=== PATIENT | male | born 1960 | race American Indian/Alaskan Native ===

== ENCOUNTER 2017-04-09 18:44 | Emergency (ER) | payer BC, OTHER ==
[~2017-04-09] VITALS: Ht 177.8 cm; Wt 98.4 kg
[~2017-04-09 18:44] MED LIST: ASPIRIN EC81 MG PO; LISINOPRIL20 MG PO; [UNRECOGNIZED DRUG - OTHER] PO
--- NOTE | 2017-04-10 16:54 | EKG ---
[facility] [address] [facility] [place] [address] Signed Normal sinus rhythm Cannot rule out Anteroseptal infarct No previous ECGs available Confirmed by ELIO HESS MD ([id number]) on 04/10/2017 4:54:51 PM Electronically Signed By: ELIO HESS MD 04/10/17 1654 PATIENT NAME: DIANA BURNS Electrocardiogram DATE OF : 56 PHYSICIAN: ELIO HESS MD REPORT #: [id number] REPORT IS CONFIDENTIAL AND NOT TO BE RELEASED WITHOUT AUTHORIZATION
== END 2017-04-09 21:12 | disposition home or self-care (01) ==
LOC: ED 18:44
DX: R20.2 Paresthesia of skin (principal); E11.9 Type 2 diabetes mellitus without complications; I10 Essential (primary) hypertension; Z88.0 Allergy status to penicillin; Z79.82 Long term (current) use of aspirin; Z79.899 Other long term (current) drug therapy
CPT/HCPCS: 70450; 71010; 80053; 85025; 93005; 93010; 99284

== ENCOUNTER 2017-07-12 15:26 | Emergency (ER) | payer OTHER, BC ==
[~2017-07-12] VITALS: Ht 177.8 cm; Wt 97.5 kg
[2017-07-12] MEDS ORDERED: IBUPROFEN600 MG PO (16:51)
== END 2017-07-12 17:02 | disposition home or self-care (01) ==
LOC: ED 15:26
DX: S86.912A Strain of unspecified muscle(s) and tendon(s) at lower leg level, left leg, initial encounter (principal); I10 Essential (primary) hypertension; E11.9 Type 2 diabetes mellitus without complications; Z88.0 Allergy status to penicillin; Z79.899 Other long term (current) drug therapy; Z79.84 Long term (current) use of oral hypoglycemic drugs; Z79.82 Long term (current) use of aspirin; W22.8XXA Striking against or struck by other objects, initial encounter; Y99.0 Civilian activity done for income or pay
CPT/HCPCS: 73560; 99283

== ENCOUNTER 2018-07-13 14:27 | Emergency (ER) | payer BC, OTHER ==
[~2018-07-13] VITALS: Ht 177.8 cm; Wt 97.5 kg
--- OUTSIDE RECORDS SUMMARY | ~2018-07-13 | XMS | Clinical Summary ---
Demographics + + + | Address | [address] | | | [place] [address] | + + + | Home Phone | | + + + | Preferred Language | Unknown | + + + | Marital Status | | + + + | Presybeterian Affiliation | Unknown | + + + | Race | Unknown | + + + | Ethnic Group | Unknown | + + + Author + + + | Author | [facility] | | | and [place] | + + + | Organization | [facility] | | | and [place] | + + + | Address | Unknown | + + + | Phone | Unavailable | + + + Support + + +---------+ + | Name | Relationship | Address | Phone | + + +---------+ + | ELOINA BURNS | ECON | Unknown | | + + +---------+ + Care Team Providers + +------+ + | Care Market Research Consultant Name | Role | Phone | + +------+ + PP | Unavailable | + +------+ + Allergies Not on File Current Medications Not on file Active Problems Not on file Social History + +-------+ +--------+------+ | Tobacco Use | Types | Packs/Day | Years | Date | | | | | Used | | + +-------+ +--------+------+ | Never Assessed | | | | | + +-------+ +--------+------+ + + + | Sex Assigned at | Date Recorded | | | | + + + | Not on file | | + + + Plan of Treatment + + + + + | Health Maintenance | Due Date | Last Done | Comments | + + + + + | Vaccine: | | | | | Dtap/Tdap/Td (1 - | 8 | | | | Tdap) | | | | + + + + + | Vaccine: Zoster (1 | | | | | of 2) | 9 | | | + + + + + | Vaccine: Influenza | | | | | (#1) | 8 | | | + + + + + Results Not on filefrom Last 3 Months"
--- OUTSIDE RECORDS SUMMARY | ~2018-07-13 | XMS | Clinical Summary ---
Demographics + + + | Address | [address] | | | [place] [address] | + + + | Home Phone | | + + + | Preferred Language | Unknown | + + + | Marital Status | | + + + | Yazidism Affiliation | Unknown | + + + | Race | Unknown | + + + | Ethnic Group | Unknown | + + + Author + + + | Author | [facility] | | | and [place] | + + + | Organization | [facility] | | | and [place] | [...] Team Providers + +------+ + | Care Compensation Coordinator Name | Role | Phone | + [...]
[~2018-07-13 14:27] MED LIST changes: +IBUPROFEN600 MG PO; +MACROBID 100 M100 MG PO
--- OUTSIDE RECORDS SUMMARY | 2018-07-13 14:30 | XMS ---
PreManage Notification: DIANA BURNS Security Form Setter Metal Road Forms Events No recent Security Events currently on file CRITERIA MET - Group Notification CARE PROVIDERS ESTELA LOEN [facility] 11/21/2017-Current PHONE: Unknown Sam has no Care Guidelines for this patient. [place] VISIT COUNT (12 MO.) 2 [facility] [place] TOTAL 2 NOTE: Visits indicate total known visits. ED/UCC VISIT TRACKING (12 MO.) 07/13/2018 14:28 [facility] [place] TYPE: Emergency COMPLAINT: - R SHOULDER PAIN/NO INJURY 11/21/2017 12:14 [facility] [place] TYPE: Emergency COMPLAINT: - DIZZINESS DIAGNOSES: - Dizziness and giddiness - Type 2 diabetes mellitus with hyperglycemia - Other [place] [facility] (current[facility] drug therapy - Essential (primary) hypertension - Heat exhaustion, unspecified, initial encounter - Personal history of nicotine dependence - extermination supervisor (current) use of aspirin - Allergy status to penicillin INPATIENT VISIT TRACKING (12 MO.) No inpatient visits to display in this time frame [email or web address]
[2018-07-13] MEDS ORDERED: GLIMEPIRIDE4 MG PO (14:40)
== END 2018-07-13 17:13 | disposition home or self-care (01) ==
LOC: ED 14:27
DX: M25.511 Pain in right shoulder (principal); R07.81 Pleurodynia; E11.9 Type 2 diabetes mellitus without complications; I10 Essential (primary) hypertension; Z87.891 Personal history of nicotine dependence; Z88.0 Allergy status to penicillin; Z79.84 Long term (current) use of oral hypoglycemic drugs; Z79.82 Long term (current) use of aspirin; Z79.899 Other long term (current) drug therapy
CPT/HCPCS: 71101; 73030; 99283-25

== ENCOUNTER 2018-12-19 20:12 | Emergency (ER) | payer BC, OTHER ==
[~2018-12-19] VITALS: Ht 177.8 cm; Wt 97.5 kg
[~2018-12-19 20:12] MED LIST changes: +GLIMEPIRIDE4 MG PO
--- OUTSIDE RECORDS SUMMARY | 2018-12-19 20:14 | XMS ---
PreManage Notification: DIANA BRUNS Security Rim Turning Finisher Events No recent Security Events currently on file CRITERIA MET - Group Notification - [facility] - Has Care Guidelines CARE PROVIDERS DORIS FLORES Physician Shipyard Laborer: Surgical 07/16/2018-Current PHONE: Unknown ESTELA LEON [facility] 11/21/2017-Current PHONE: Unknown Sam has no Care Guidelines for this patient. Care History Medical/Surgical 07/16/2018 [facility] \T\middot;\T\nbsp; PATIENT IS A [employer] MEMBER. \T\middot;\T\nbsp; PLEASE REFER PATIENT TO [facility] FOR NON EMERGENT MEDICAL NEEDS. \T\middot;\ T\nbsp; [facility] CAN SEE PATIENTS SAME DAY FOR APTS IF PATIENT CALLS FIRST THING IN THE MORNING. E.D. VISIT COUNT (12 MO.) 2 [facility] [place] TOTAL 2 NOTE: Visits indicate total known visits. ED/UCC VISIT TRACKING (12 MO.) 12/19/2018 20:13 [facility] [place] TYPE: Emergency COMPLAINT: - RIGHT HAND SWELLING, NO INJURY 07/13/2018 14:28 [facility] [place] TYPE: Emergency COMPLAINT: - R SHOULDER PAIN/NO INJURY DIAGNOSES: - Other nursing home (current) drug therapy - Allergy status to penicillin - exterminator helper (current) use of aspirin - Personal history of nicotine dependence - Pleurodynia - Pain in right shoulder - exterminator helper (current) use of oral hypoglycemic drugs - Type 2 diabetes mellitus without complications - Essential (primary) hypertension INPATIENT VISIT TRACKING (12 MO.) No inpatient visits to display in this time frame [id number]
[2018-12-19] MEDS ORDERED: CEPHALEXIN500 MG PO (21:25)
[2018-12-19] MEDS ORDERED: BACTRIM DS TAB1 EACH PO (21:25)
== END 2018-12-19 21:36 | disposition home or self-care (01) ==
LOC: ED 20:12
DX: L03.113 Cellulitis of right upper limb (principal); E11.9 Type 2 diabetes mellitus without complications; I10 Essential (primary) hypertension; Z88.0 Allergy status to penicillin; Z79.899 Other long term (current) drug therapy; Z79.82 Long term (current) use of aspirin
CPT/HCPCS: 99283

== ENCOUNTER → 2019-04-22 | Emergency (ER) | payer BC, OTHER ==
[~2019-04-22] VITALS: Ht 177.8 cm; Wt 95.3 kg
[~2019-04-22] MED LIST changes: +BACTRIM DS TAB1 EACH PO; +CALCIUM500 M1 PO; +CEPHALEXIN500 MG PO; +DOXYCYCLINE HY100 MG PO; +GLUCOPHAGE500 MG PO; +IODOSORB40 GM; +LISINOPRIL40 MG PO
--- OUTSIDE RECORDS SUMMARY | ~2019-04-22 | XMS | Clinical Summary ---
Demographics + + + | Address | [address] | | | [place] [address] | + + + | Home Phone | | + + + | Preferred Language | Unknown | + + + | Marital Status | | + + + | Bahai Affiliation | Unknown | + + + | Race | Unknown | + + + | Ethnic Group | Unknown | + + + Author + + + | Author | [facility] | | | and [place] | + + + | Organization | [facility] | | | and [place] | + + + | Address | Unknown | + + + | Phone | Unavailable | + + + Support + + +---------+ + | Name | Relationship | Address | Phone | + + +---------+ + | Ivis Lyles | ECON | Unknown | | + + +---------+ + Care Team Providers + +------+ + | Care Licensed Practical Nurse Clinic Nurse Name | Role | Phone | + +------+ + PCP | Unavailable | + +------+ + Allergies Not on File Medications Not on file Active Problems Not [...] on file | | + + + + + + + | Job Start Date | Occupation | Industry | + + + + | Not on file | Not on file | Not on file | + + + + + + + + | Travel History | Travel Start | Travel End | + + + + + + | No recent travel history available. | + + Last Filed Vital Signs Not on file Plan of Treatment + + + + + | Health Maintenance | Due Date | Last Done | Comments | + + + + + | Vaccine: | | | | | Dtap/Tdap/Td (1 - | 0 | | | | Tdap) | | | | + + + + + | Vaccine: Zoster (1 | | | | | of 2) | 9 | | | + + + + + | Vaccine: Influenza | | | | | (#1) | 9 | | | + + + + + Results Not on filefrom Last 3 Months"
--- OUTSIDE RECORDS SUMMARY | ~2019-04-22 | XMS | Encounter Summary ---
Demographics + + + | Address | [address] | | | [place] [address] | + + + | Home Phone | | + + + | Preferred Language | Unknown | + + + | Marital Status | | + + + | Sikhism Affiliation | Unknown | + + + | Race | Unknown | + + + | Ethnic Group | Unknown | + + + Author + + + | Author | [facility] | | | and [place] | + + + | Organization | [facility] | | | and [place] [...] Team Providers + +------+ + | Care Chute Man Name | Role | Phone | + +------+ + PCP | Unavailable | + +------+ + Encounter Details +--------+ + + + + | Date | Type | Department | Care Team | Description | +--------+ + + + + | 04/08/ | Hospital | [facility] | | | | 2001 | Encounter | MED CTR XRAY [address] | | | | | [address] | | | | | | [place] [address] | | | | | | [phone] | | | +--------+ + + + + Social History + +-------+ +--------+------+ | Tobacco [...] recent travel history available. | + + documented as of this encounter Plan of Treatment Not on filedocumented as of this encounter Visit Diagnoses Not on filedocumented in this encounter"
--- OUTSIDE RECORDS SUMMARY | ~2019-04-22 | XMS | Clinical Summary ---
Demographics + + + | Address | [address] | | | [place] [address] | + + + | Home Phone | | + + + | Preferred Language | Unknown | + + + | Marital Status | | + + + | Jain Affiliation | Unknown | + + + | Race | Unknown | + + + | Ethnic Group | Unknown | + + + Author + + + | Author | [facility] | | | and [place] | + + + | Organization | [facility] | | | and [...] Team Providers + +------+ + | Care Operating Room Tech Name | Role | Phone | [...]
--- OUTSIDE RECORDS SUMMARY | ~2019-04-22 | XMS | Encounter Summary ---
Demographics + + + | Address | [address] | | | [place] [address] | + + + | Home Phone | | + + + | Preferred Language | Unknown | + + + | Marital Status | | + + + | Hoahaoism Affiliation | Unknown | + + + | Race | Unknown | + + + | Ethnic Group | Unknown | + + + Author + + + | Author | [facility] | | | and [place] | + + + | Organization | [facility] | | | and [...] Team Providers + +------+ + | Care Deburr Operator Name | Role | Phone | + +------+ + PCP | Unavailable | + +------+ + Encounter Details +--------+ + + + + | Date | Type | Department | Care Team | Description | +--------+ + + + + | 04/08/ | Hospital | [facility] | | | | 2001 | Encounter | MED CTR XRAY [address] | | | | | [address] | | | | | | [place] [address] | | | | | | [phone] | | | +--------+ + + + [...]
--- OUTSIDE RECORDS SUMMARY | 2019-04-22 09:44 | XMS ---
PreManage Notification: DIANA BURNS Security Animal Anatomy Teacher Events No recent Security Events currently on file CRITERIA MET - Group Notification - [facility] - 2 Visits in 30 Days CARE PROVIDERS DORIS MATAMOROS Physician Hvac Sheet Metal Installer Helper: Surgical 07/16/2018-Current PHONE: Unknown ESTELA LEON [facility] 11/21/2017-Current PHONE: Unknown SHADY DUBON Nurse Practitioner 12/20/2018-Current PHONE: [phone] [facility] 04/16/2019-Current PHONE: [phone] Sam has no Care Guidelines for this patient. 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 PLEASE REFER PATIENT TO [facility] FOR NON EMERGENT MEDICAL NEEDS. [facility] CAN SEE PATIENTS SAME DAY FOR APTS IF PATIENT CALLS FIRST THING IN THE MORNING. EJosé Antonio VISIT COUNT (12 MO.) 4 [facility]. TOTAL 4 NOTE: Visits indicate total known visits. ED/UCC VISIT TRACKING (12 MO.) 04/22/2019 09:43 [facility] [place] TYPE: Emergency COMPLAINT: - FOOT PAIN/ WOUND 04/15/2019 14:35 [facility] [place] TYPE: Emergency COMPLAINT: - LEFT FOOT PAIN DIAGNOSES: - Allergy status to penicillin - Personal history of nicotine dependence - Exposure to other specified factors, initial encounter - Cellulitis of left lower limb - 1 Type 2 diabetes mellitus with unspecified complications - Other longterm (current) drug therapy - Essential (primary) hypertension - Oth symptoms and signs involving the musculoskeletal system - Puncture wound without foreign body, left foot, init encntr 12/19/2018 20:13 [facility] [place] TYPE: Emergency COMPLAINT: - RIGHT HAND SWELLING, NO INJURY DIAGNOSES: - Other longterm (current) drug therapy - Essential (primary) hypertension - moth exterminator (current) use of aspirin - Other specified soft tissue disorders - 1 Type 2 diabetes mellitus without complications - Cellulitis of right upper limb - Allergy status to penicillin 07/13/2018 14:28 [facility] [place] TYPE: Emergency COMPLAINT: - R SHOULDER PAIN/NO INJURY DIAGNOSES: - Other longterm (current) drug therapy - Allergy status to penicillin - shelter (current) use of aspirin - Personal history of nicotine dependence - Pleurodynia - Pain in right shoulder - shelter (current) use of oral hypoglycemic drugs - 1 Type 2 diabetes mellitus without complications - Essential (primary) hypertension INPATIENT VISIT TRACKING (12 MO.) No inpatient visits to display in this time frame [id number]
== END ==
LOC: ED 09:42
DX: E11.621 Type 2 diabetes mellitus with foot ulcer (principal); L97.529 Non-pressure chronic ulcer of other part of left foot with unspecified severity; I10 Essential (primary) hypertension; Z88.0 Allergy status to penicillin; Z79.84 Long term (current) use of oral hypoglycemic drugs; Z79.899 Other long term (current) drug therapy
CPT/HCPCS: 99283; J2704

== ENCOUNTER 2021-07-01 15:12 | Emergency (ER) | payer OTHER, BC ==
[~2021-07-01] VITALS: Ht 177.8 cm; Wt 100.7 kg
[~2021-07-01 15:12] MED LIST changes: -IODOSORB40 GM; +IODOSORB40 GM TOP; +JANUVIA100 MG PO; +LEVOFLOXACIN500 MG PO; +METFORMIN HCL1000 MG PO; +METRONIDAZOLE500 MG PO
--- OUTSIDE RECORDS SUMMARY | 2021-07-01 15:27 | XMS ---
PreManage Notification: DIANA BURNS Security Fruit Coordinator Events No recent Security Events currently on file CRITERIA MET - Group Notification CARE PROVIDERS DORIS MATAMOROS Physician Dampener Operator: Surgical 07/16/2018-Current PHONE: Unknown ESTELA LEON [facility] 11/21/2017-Current PHONE: [phone] SHADY DUBON Nurse Practitioner 12/20/2018-Current PHONE: [phone] LANDY [facility] 04/16/2019-[facility] PHONE: [phone] Sam has no Care Guidelines for this patient. Care History Medical/Surgical 07/16/2018 [facility] \T\middot;\T\nbsp; [facility] \T\middot;\T\nbsp; PLEASE REFER PATIENT TO [facility] FOR NON EMERGENT MEDICAL NEEDS. \T\middot;\ T\nbsp; [facility] CAN SEE PATIENTS SAME DAY FOR APTS IF PATIENT CALLS FIRST THING IN THE MORNING. E.D. VISIT COUNT (12 MO.) 1 [facility]. TOTAL 1 NOTE: Visits indicate total known visits. ED/UCC VISIT TRACKING (12 MO.) 07/01/2021 15:13 [facility] [place] TYPE: Emergency COMPLAINT: - CHEMICAL EXPOSURE INPATIENT VISIT TRACKING (12 MO.) No inpatient visits to display in this time frame [email or web address]
[2021-07-01] MEDS ORDERED: VITAMIN B122500 MCG PO (16:33)
[2021-07-01] MEDS ORDERED: LISINOPRIL40 MG PO (16:33)
[2021-07-01] MEDS ORDERED: VITAMIN C500 M1 PO (16:34)
--- NOTE | 2021-07-02 07:01 | EKG ---
[facility] [address] [facility] [place], [place] [address] Signed Sinus rhythm with 1st degree AV block Otherwise normal ECG When compared with ECG of 23-APR-2019 10:08, No significant change was found Confirmed by SHERYL CRAIG MD ([id number]) on 07/02/2021 7:01:17 AM Electronically Signed By: SHERYL CRAIG MD 07/02/21 0701 PATIENT NAME: KATYDIANA Electrocardiogram DATE OF : 56 PHYSICIAN: SHERYL CRAIG MD REPORT #: [id number] REPORT IS CONFIDENTIAL AND NOT TO BE RELEASED WITHOUT AUTHORIZATION
== END 2021-07-01 19:25 | disposition home or self-care (01) ==
LOC: ED 15:12
DX: E11.65 Type 2 diabetes mellitus with hyperglycemia (principal); I10 Essential (primary) hypertension; Z88.0 Allergy status to penicillin; Z79.899 Other long term (current) drug therapy; Z77.098 Contact with and (suspected) exposure to other hazardous, chiefly nonmedicinal, chemicals
CPT/HCPCS: 36415; 80053; 84484; 85025; 93005; 93010; 99283-25; G0480

== ENCOUNTER 2022-05-30 18:03 | Emergency (ER) | payer BC, OTHER ==
[~2022-05-30] VITALS: Ht 177.8 cm; Wt 100.7 kg
[~2022-05-30 18:03] MED LIST changes: +VITAMIN B122500 MCG PO; +VITAMIN C500 M1 PO
--- OUTSIDE RECORDS SUMMARY | 2022-05-30 18:13 | XMS ---
PreManage Notification: DIANA BURNS Security Tip Length Checker Events No recent Security Events currently on file CRITERIA MET - Group Notification - [facility] CARE PROVIDERS DORIS MATAMOROS Physician Analytics Architect: Surgical 07/16/2018-Current PHONE: Unknown ESTELA LEON [facility] 11/21/2017-Current PHONE: [phone] SHADY DUBON Nurse Practitioner 12/20/2018-Current PHONE: [phone] LANDY [facility] 04/16/2019-[facility] PHONE: [phone] ROBERT AKHIOK Case Management 07/02/2021-[facility] PHONE: [phone] Sam has no Care Guidelines for this patient. Care History Medical/Surgical 07/01/2021 [facility] \T\middot;\T\nbsp; PATIENT- [facility] ELIGIBLE \T\middot;\T\nbsp; PLEASE REFER PATIENT TO [facility] FOR NON EMERGENT MEDICAL NEEDS. \T\middot;\ T\nbsp; [facility] CAN SEE PATIENTS SAME DAY FOR APTS IF PATIENT CALLS FIRST THING IN THE MORNING. E.D. VISIT COUNT (12 MO.) [address] [place] [address]. TOTAL 2 NOTE: Visits indicate total known visits. ED/UCC VISIT TRACKING (12 MO.) 05/30/2022 18:04 [facility] [place] TYPE: Emergency COMPLAINT: - L FOOT PAIN 07/01/2021 15:13 [facility] [place] TYPE: Emergency COMPLAINT: - CHEMICAL EXPOSURE DIAGNOSES: - Essential (primary) hypertension - Contact with and (suspected) exposure to other hazardous, chiefly nonmedicinal, chemicals - Dizziness and giddiness - Allergy status to penicillin - Other longterm (current) drug therapy - Type 2 diabetes mellitus with hyperglycemia INPATIENT VISIT TRACKING (12 MO.) No inpatient visits to display in this time frame [id number]
== END 2022-05-31 02:46 | disposition home or self-care (01) ==
LOC: ED 18:03
DX: M86.9 Osteomyelitis, unspecified (principal); I10 Essential (primary) hypertension; E11.9 Type 2 diabetes mellitus without complications; Z88.0 Allergy status to penicillin; Z79.899 Other long term (current) drug therapy
CPT/HCPCS: 36415; 73630; 80053; 85025; 96365; 96366; 99283-25; J3370; J7060

== ENCOUNTER 2022-09-07 18:39 | Observation (INO) | payer BC, OTHER ==
[~2022-09-07] VITALS: Ht 177.8 cm; Wt 96.3 kg
--- OUTSIDE RECORDS SUMMARY | 2022-09-07 18:46 | XMS ---
PreManage Notification: DIANA BURNS Security Lamp Mechanic Events No recent Security Events currently on file CRITERIA MET - Group Notification - [facility] CARE PROVIDERS DORIS MATAMOROS Physician Counselor Aide: Surgical 07/16/2018-Current PHONE: Unknown ESTELA LEON [facility] 11/21/2017-Current PHONE: [phone] SHADY DUBON Nurse Practitioner 12/20/2018-Current PHONE: [phone] LANDY [facility] 04/16/2019-[facility] PHONE: [phone] ROBERT SNOQUALMIE Case Management 07/02/2021-[facility] PHONE: [phone] Sam has no Care Guidelines for this patient. Care History Medical/Surgical 07/01/2021 [facility] \T\middot;\T\nbsp; PATIENT- [facility]IG[facility] \T\middot;\T\nbsp; PLEASE REFER PATIENT TO [facility] FOR NON EMERGENT MEDICAL NEEDS. \T\middot;\ T\nbsp; [facility] CAN SEE PATIENTS SAME DAY FOR APTS IF PATIENT CALLS FIRST THING IN THE MORNING. E.D. VISIT COUNT (12 MO.) [address] [place] [address]. TOTAL 2 NOTE: Visits indicate total known visits. ED/UCC VISIT TRACKING (12 MO.) 09/07/2022 18:40 [facility] [place] TYPE: Emergency COMPLAINT: - NUMBNESS 05/30/2022 18:04 [facility] [place] TYPE: Emergency COMPLAINT: - L FOOT PAIN/NO INJ DIAGNOSES: - Allergy status to penicillin - Essential (primary) hypertension - Osteomyelitis, unspecified - Other terminal makeup operator (current) drug therapy - Other specified soft tissue disorders - Type 2 diabetes mellitus without complications INPATIENT VISIT TRACKING (12 MO.) No inpatient visits to display in this time frame [id number]
[2022-09-07 22:05] VITALS: BP 198/93
[2022-09-07] MEDS ORDERED: CIPROFLOXACIN750 MG (22:12)
[2022-09-08 02:05] VITALS: BP 169/77
[2022-09-08 05:57] VITALS: BP 171/79
[2022-09-08 08:56] VITALS: BP 167/72
[2022-09-08] MEDS ORDERED: ASPIRIN81 MG PO (10:19)
[2022-09-08] MEDS ORDERED: GLYNASE1.5 MG PO (10:20)
[2022-09-08] MEDS ORDERED: ACCUPRIL5 MG PO (10:25)
[2022-09-08] MEDS ORDERED: VITAMIN B-121000 MCG PO (10:29)
[2022-09-08] MEDS ORDERED: VITAMIN C1000 MG PO (10:29)
[2022-09-08] MEDS ORDERED: GLYBURIDE5 MG PO (11:27)
[2022-09-08 13:21] VITALS: BP 172/80
--- NOTE | 2022-09-08 21:34 | EKG ---
[facility] [address] [facility] [place], [place] [address] Signed Sinus rhythm with 1st degree AV block Otherwise normal ECG When compared with ECG of 01-JUL-2021 16:48, No significant change was found Confirmed by SHERYL CRAIG MD ([id number]) on 09/08/2022 9:34:25 PM Electronically Signed By: SHERYL CRAIG MD 09/08/224 PATIENT NAME: DIANA BURNS Electrocardiogram DATE OF : 56 PHYSICIAN: SHERYL CRAIG MD REPORT #: [id number] REPORT IS CONFIDENTIAL AND NOT TO BE RELEASED WITHOUT AUTHORIZATION
== END 2022-09-08 13:38 | disposition home or self-care (01) ==
LOC: ED 18:39 → MS 18:41
PROVIDERS: ADMIT Internal Medicine; ATTEND Internal Medicine
DX: I63.9 Cerebral infarction, unspecified (principal); E11.65 Type 2 diabetes mellitus with hyperglycemia; I10 Essential (primary) hypertension; Z88.0 Allergy status to penicillin
CPT/HCPCS: 36415; 70450; 70496; 70498; 70551; 71045; 80048; 80053; 80061; 83036; 83735; 85025; 87502; 93005; 93010; 99285-25; A9270; G0378; J1815; J7030; Q9967; U0003

== ENCOUNTER 2022-11-03 21:35 | Inpatient (IN) | payer BC, OTHER ==
[~2022-11-03] VITALS: Ht 177.8 cm; Wt 95.4 kg
--- OUTSIDE RECORDS SUMMARY | ~2022-11-03 | XMS | Continuity of Care Document ---
Demographics + + + | Address | [address] | | | [place] [address] | + + + | Preferred Language | Unknown | + + + | Marital Status | | + + + | Anabaptism Affiliation | Unknown | + + + | Race | or | + + + | Ethnic Group | Not or | + + + Author + + + | Author | [facility] | + + + | Organization | [facility] | + + + | Address | [address] | | | [place] [address] | + + + | Phone | | + + + Care Team Providers + + + + | Care Polystyrene Molding Machine Tender Name | Role | Phone | + + + + Unavailable | Unavailable | + + + + Unavailable | Unavailable | + + + + Allergies and Intolerances + + + + + | date | description | facility | type | + + + + + | (no date) | Urticaria | [facility] | (unknown) | | | | Hospital | | + + + + + | (no date) | Penicillin | [facility] | (unknown) | | | | Hospital | | + + + + + | (no date) | Penicillin | [facility] | (unknown) | | | | Hospital | | + + + + + | (no date) | Penicillins | [facility] | (unknown) | + + + + + | (no date) | Penicillin | [facility] | (unknown) | | | | Hospital | | + + + + + | (no date) | Penicillin | [facility] | (unknown) | | | | Hospital | | + + + + + Encounters No information. Functional Status No information. Immunizations No information. Medications + + + + | date | description | facility | + + + + | 2022-05-31 00:00 | CYANOCOBALAMIN (VITAMIN | [facility] | | | B-12) | | + + + + | 2019-04-28 00:00 | DOXYCYCLINE HYCLATE | [facility] | + + + + | 2017-07-12 00:00 | IBUPROFEN | [facility] | + + + + | 2022-05-31 00:00 | LISINOPRIL | [facility] | + + + + | 2019-04-28 00:00 | GLIMEPIRIDE | [facility] | + + + + | 2022-05-31 00:00 | GLIMEPIRIDE | [facility] | + + + + | 2019-04-28 00:00 | LEVOFLOXACIN | [facility] | + + + + | 2022-05-31 00:00 | ASCORBIC ACID | [facility] | + + + + | 2022-05-31 00:00 | ASPIRIN | [facility] | + + + + | 2018-12-19 00:00 | CEPHALEXIN | [facility] | + + + + | 2019-04-30 00:00 | METRONIDAZOLE | [facility] | + + + + | 2022-05-31 00:00 | CALCIUM CARBONATE | [facility] | + + + + | 2017-11-21 00:00 | NITROFURANTOIN MONOHYD | [facility] | | | MACROCR | | + + + + | 2019-04-28 00:00 | SITAGLIPTIN PHOSPHATE | [facility] | + + + + | 2022-05-31 00:00 | CADEXOMER IODINE | [facility] | + + + + | 2018-12-19 00:00 | | [facility] | | | SULFAMETHOXAZOLE/TRIMETHOPR | | | | IM DS | | + + + + | 2019-04-28 00:00 | METFORMIN HCL | [facility] | + + + + | 2019-04-15 00:00 | metFORMIN HCL | [facility] | + + + + Problems + + + + | date | description | facility | + + + + | 2017-04-09 00:00 | Paresthesia of right lower | [facility] | | | extremity | | + + + + | 2017-07-12 00:00 | Strain of left knee and | [facility] | | | leg | | + + + + | 2017-11-21 00:00 | Hyperglycemia | [facility] | + + + + | 2017-11-21 00:00 | Heat exhaustion | [facility] | + + + + | 2018-07-13 00:00 | Shoulder pain | [facility] | + + + + | 2018-12-19 00:00 | Cellulitis of right hand | [facility] | + + + + | 2019-04-15 00:00 | Cellulitis of left foot | [facility] | + + + + | 2019-04-15 00:00 | Puncture wound of foot | [facility] | + + + + | 2019-04-22 00:00 | Diabetic foot ulcer | [facility] | + + + + | 2021-07-01 00:00 | Hypertension | [facility] | + + + + | 2021-07-01 00:00 | High glucose level | [facility] | + + + + | 2021-07-01 00:00 | Chemical exposure | [facility] | + + + + | 2022-05-30 00:00 | Osteomyelitis of left foot | [facility] | | | | | + [...] + + | 2022-05-30 18:04 | OTHER RESIDENTIAL (CURRENT) | [facility] | [...] + + + | 2022-10-25 11:39 | DYE COLORIST FORMULATOR (CURRENT) USE OF | [facility] | | | ASPIRIN | | + + + + | 2022-10-25 11:39 | DYE COLORIST FORMULATOR (CURRENT) USE OF | [facility] | | | ORAL HYPOGLYCEMIC DRUGS | | + + + + | 2022-10-25 11:39 | OTHER RESIDENTIAL (CURRENT) | [facility] | | | DRUG THERAPY | | + + + + | 2022-10-25 11:39 | ALLERGY STATUS TO | [facility] | | | PENICILLIN | | + + + + Procedures No information. Results/Labs No information. Social History No information. Vital Signs + [...]
--- OUTSIDE RECORDS SUMMARY | ~2022-11-03 | XMS | Continuity of Care Document ---
Demographics + + + | Address | [address] | | | [place] [address] | + + + | Preferred Language | Unknown | + + + | Marital Status | | + + + | Muslim Affiliation | Unknown | + + + | Race | or | + + + | Ethnic Group | Not or | + + + Author + + + | Author | [facility] | + + + | Organization | [facility] | + + + | Address | [address] | | | [place] [address] | + + + | Phone | | + + + Care Team Providers + + + + | Care Dog Track Kennel Manager Name | Role | Phone | + + + + Unavailable | Unavailable | + + + + Unavailable | Unavailable | + + + + Allergies and Intolerances + + + + + | date | description | facility | type | + + + + + | (no date) | Urticaria | [facility] | (unknown) | | | | Hospital | | + + + + + | (no date) | Penicillin | [facility] | (unknown) | | | | Hospital | | + + + + + | (no date) | Penicillin | [facility] | (unknown) | | | | Hospital | | + + + + + | (no date) | Penicillins | [facility] | (unknown) | + + + + + | (no date) | Penicillin | [facility] | (unknown) | | | | Hospital | | + + + + + | (no date) | Penicillin | [facility] | (unknown) | | | | Hospital | | + + + + + Encounters No information. Functional Status No information. Immunizations No information. Medications + + + + | date | description | facility | + + + + | 2022-05-31 00:00 | CYANOCOBALAMIN (VITAMIN | [facility] | | | B-12) | | + + + + | 2019-04-28 00:00 | DOXYCYCLINE HYCLATE | [facility] | + + + + | 2017-07-12 00:00 | IBUPROFEN | [facility] | + + + + | 2022-05-31 00:00 | LISINOPRIL | [facility] | + + + + | 2019-04-28 00:00 | GLIMEPIRIDE | [facility] | + + + + | 2022-05-31 00:00 | GLIMEPIRIDE | [facility] | + + + + | 2019-04-28 00:00 | LEVOFLOXACIN | [facility] | + + + + | 2022-05-31 00:00 | ASCORBIC ACID | [facility] | + + + + | 2022-05-31 00:00 | ASPIRIN | [facility] | + + + + | 2018-12-19 00:00 | CEPHALEXIN | [facility] | + + + + | 2019-04-30 00:00 | METRONIDAZOLE | [facility] | + + + + | 2022-05-31 00:00 | CALCIUM CARBONATE | [facility] | + + + + | 2017-11-21 00:00 | NITROFURANTOIN MONOHYD | [facility] | | | MACROCR | | + + + + | 2019-04-28 00:00 | SITAGLIPTIN PHOSPHATE | [facility] | + + + + | 2022-05-31 00:00 | CADEXOMER IODINE | [facility] | + + + + | 2018-12-19 00:00 | | [facility] | | | SULFAMETHOXAZOLE/TRIMETHOPR | | | | IM DS | | + + + + | 2019-04-28 00:00 | METFORMIN HCL | [facility] | + + + + | 2019-04-15 00:00 | metFORMIN HCL | [facility] | + + + + Problems + + + + | date | description | facility | + + + + | 2017-04-09 00:00 | Paresthesia of right lower | [facility] | | | extremity | | + + + + | 2017-07-12 00:00 | Strain of left knee and | [facility] | | | leg | | + + + + | 2017-11-21 00:00 | Hyperglycemia | [facility] | + + + + | 2017-11-21 00:00 | Heat exhaustion | [facility] | + + + + | 2018-07-13 00:00 | Shoulder pain | [facility] | + + + + | 2018-12-19 00:00 | Cellulitis of right hand | [facility] | + + + + | 2019-04-15 00:00 | Cellulitis of left foot | [facility] | + + + + | 2019-04-15 00:00 | Puncture wound of foot | [facility] | + + + + | 2019-04-22 00:00 | Diabetic foot ulcer | [facility] | + + + + | 2021-07-01 00:00 | Hypertension | [facility] | + + + + | 2021-07-01 00:00 | High glucose level | [facility] | + + + + | 2021-07-01 00:00 | Chemical exposure | [facility] | + + + + | 2022-05-30 00:00 | Osteomyelitis of left foot | [facility] | | | | | + [...] + + | 2022-05-30 18:04 | OTHER PENITENTIARY (CURRENT) | [facility] | | | DRUG [...] + + + | 2022-10-25 11:39 | SUPPORT TEAM MEMBER (CURRENT) USE OF | [facility] | | | ASPIRIN | | + + + + | 2022-10-25 11:39 | SUPPORT TEAM MEMBER (CURRENT) USE OF | [facility] | | | ORAL HYPOGLYCEMIC DRUGS | | + + + + | 2022-10-25 11:39 | OTHER PENITENTIARY (CURRENT) | [facility] | | | DRUG [...]
--- OUTSIDE RECORDS SUMMARY | ~2022-11-03 | XMS | Continuity of Care Document ---
Demographics + + + | Address | [address] | | | [place] [address] | + + + | Preferred Language | Unknown | + + + | Marital Status | | + + + | Jewish Affiliation | Unknown | + + + | Race | or | + + + | Ethnic Group | Not or | + + + Author + + + | Author | [facility] | + + + | Organization | [facility] | + + + | Address | [address] | | | [place] [address] | + + + | Phone | | + + + Care Team Providers + + + + | Care Budget Counselor Name | Role | Phone | + + + + Unavailable | Unavailable | + + + + Unavailable | Unavailable | + + + + Allergies and Intolerances + + + + + | date | description | facility | type | + + + + + | (no date) | Urticaria | [facility] | (unknown) | | | | Hospital | | + + + + + | (no date) | Penicillin | [facility] | (unknown) | | | | Hospital | | + + + + + | (no date) | Penicillin | [facility] | (unknown) | | | | Hospital | | + + + + + | (no date) | Penicillins | [facility] | (unknown) | + + + + + | (no date) | Penicillin | [facility] | (unknown) | | | | Hospital | | + + + + + | (no date) | Penicillin | [facility] | (unknown) | | | | Hospital [...] + + | 2022-05-30 18:04 | OTHER ASSISTED (CURRENT) | [facility] | | | DRUG [...] + + + | 2022-10-25 11:39 | CHILD WELFARE CASEWORKER (CURRENT) USE OF | [facility] | | | ASPIRIN | | + + + + | 2022-10-25 11:39 | CHILD WELFARE CASEWORKER (CURRENT) USE OF | [facility] | | | ORAL HYPOGLYCEMIC DRUGS | | + + + + | 2022-10-25 11:39 | OTHER ASSISTED (CURRENT) | [facility] | | | DRUG [...]
[~2022-11-03 21:35] MED LIST changes: +ACCUPRIL5 MG PO; +ASPIRIN81 MG PO; +CIPROFLOXACIN750 MG; +GLYBURIDE5 MG PO; +GLYNASE1.5 MG PO; +LIPITOR40 MG PO; +PLAVIX75 MG PO; +VITAMIN B-121000 MCG PO; +VITAMIN C1000 MG PO
--- OUTSIDE RECORDS SUMMARY | 2022-11-03 21:42 | XMS ---
PreManage Notification: DIANA BURNS Security Cte Teacher Events No recent Security Events currently on file CRITERIA MET - Group Notification - [facility] - 2 Visits in 30 Days - [facility] - Has Care Guidelines CARE PROVIDERS DORIS MATAMOROS Physician Butcher: Surgical 07/16/2018-Current PHONE: Unknown ESTELA LEON [facility] 11/21/2017-Current PHONE: [phone] SHADY DUBON Nurse Practitioner 12/20/2018-Current PHONE: [phone] LANDY CARR Case Management 07/02/2021-[facility] PHONE: [phone] [facility] 04/16/2019-[facility] PHONE: [phone] Sam has no Care Guidelines for this patient. Care History Medical/Surgical 07/01/2021 [facility] \T\middot;\T\nbsp; PATIENT- [facility] ELIGIBLE \T\middot;\T\nbsp; PLEASE REFER PATIENT TO [facility] FOR NON EMERGENT MEDICAL NEEDS. \T\middot;\ T\nbsp; [facility] CAN SEE PATIENTS SAME DAY FOR APTS IF PATIENT CALLS FIRST THING IN THE MORNING. E.D. VISIT COUNT ([address] MO[address] 4 [facility]. TOTAL 4 NOTE: Visits indicate total known visits. ED/UCC VISIT TRACKING (12 MO.) 11/03/2022 21:36 [facility] [place] TYPE: Emergency COMPLAINT: - FEVER/ LT FOOT SWELLING 10/25/2022 11:39 [facility] [place] TYPE: Emergency COMPLAINT: - R SIDE FACE NUMBNESS, R ARM/ELBOW NUMBNESS DIAGNOSES: - Allergy status to penicillin - Anesthesia of skin - Essential (primary) hypertension - care home (current) use of aspirin - buttermaker helper (current) use of oral hypoglycemic drugs - Other marine oil terminal superintendent (current) drug therapy - Transient cerebral ischemic attack, unspecified - Type 2 diabetes mellitus without complications 09/07/2022 18:40 [facility] [place] TYPE: Emergency COMPLAINT: - NUMBNESS 05/30/2022 18:04 [facility] [place] TYPE: Emergency COMPLAINT: - L FOOT PAIN/NO INJ DIAGNOSES: - Allergy status to penicillin - Essential (primary) hypertension - Osteomyelitis, unspecified - Other marine oil terminal superintendent (current) drug therapy - Other specified soft tissue disorders - Type 2 diabetes mellitus without complications INPATIENT VISIT TRACKING (12 MO.) 09/07/2022 18:41 [facility] [place] TYPE: Observation COMPLAINT: - CVA DIAGNOSES: - Allergy status to penicillin - Cerebral infarction, unspecified - Essential (primary) hypertension - Type 2 diabetes mellitus with hyperglycemia [id number]
[2022-11-04 05:42] VITALS: BP 90/71
[2022-11-04 07:59] VITALS: BP 108/53
[2022-11-04 09:06] VITALS: BP 114/58
[2022-11-04 13:10] VITALS: BP 143/71
[2022-11-04 18:30] VITALS: BP 141/62
[2022-11-04 20:55] VITALS: BP 151/76
[2022-11-05 01:42] VITALS: BP 142/65
[2022-11-05 06:20] VITALS: BP 151/67
[2022-11-05 09:38] VITALS: BP 164/81
[2022-11-05 13:44] VITALS: BP 152/78
[2022-11-05] MEDS ORDERED: SULFAMETHOXAZO1 EAC1 PO (15:29)
[2022-11-05] MEDS ORDERED: DAPTOMYCIN500 MG IV (15:30)
== END 2022-11-05 17:50 | disposition home or self-care (01) | DRG 637 ==
LOC: ED 21:35 → MS 11-04 05:14
PROVIDERS: ADMIT Family Medicine; ATTEND Internal Medicine
PROC: 3E03329 Introduction of Other Anti-infective into Peripheral Vein, Percutaneous Approach (ICD-10-PCS; principal; 2022-11-04)
PROC: 02HV33Z Insertion of Infusion Device into Superior Vena Cava, Percutaneous Approach (ICD-10-PCS; 2022-11-04)
DX: E11.69 Type 2 diabetes mellitus with other specified complication (principal); A41.9 Sepsis, unspecified organism; R65.20 Severe sepsis without septic shock; E87.1 Hypo-osmolality and hyponatremia; M86.8X7 Other osteomyelitis, ankle and foot; E11.621 Type 2 diabetes mellitus with foot ulcer; L97.529 Non-pressure chronic ulcer of other part of left foot with unspecified severity; N17.9 Acute kidney failure, unspecified; I10 Essential (primary) hypertension; E11.65 Type 2 diabetes mellitus with hyperglycemia; Z20.822 Contact with and (suspected) exposure to COVID-19; Z79.02 Long term (current) use of antithrombotics/antiplatelets; Z89.422 Acquired absence of other left toe(s); Z88.0 Allergy status to penicillin; Z79.899 Other long term (current) drug therapy; Z79.82 Long term (current) use of aspirin; Z88.1 Allergy status to other antibiotic agents; Z79.4 Long term (current) use of insulin
CPT/HCPCS: 36415; 36569; 70450; 71045; 73700; 80053; 82803; 83605; 83880; 85025; 87040; 87070; 87075; 87205; 87502; 93971; 94640; 94760; 96361; 96374; 96375; 99285 25; A9270; C1751; J0878; J1100; J1200; J1815; J1940; J2060; J3370; J7030; J7121; Q9967; U0002

== ENCOUNTER 2022-11-29 16:01 | Emergency (ER) | payer BC, OTHER ==
[~2022-11-29] VITALS: Ht 177.8 cm; Wt 94.0 kg
--- OUTSIDE RECORDS SUMMARY | ~2022-11-29 | XMS | Continuity of Care Document ---
Demographics + + + | Address | [address] | | | [place] [address] | + + + | Preferred Language | Unknown | + + + | Marital Status | | + + + | Caodaism Affiliation | Unknown | + + + | Race | or | + + + | Ethnic Group | Not or | + + + Author + + + | Author | [facility] | + + + | Organization | [facility] | + + + | Address | [address] | | | [place] [address] | + + + | Phone | | + + + Care Team Providers + + + + | Care Mechanical Tech Name | Role | Phone | + + + + Unavailable | Unavailable | + + + + Unavailable | Unavailable | + + + + Allergies and Intolerances + + + + + + | date | description | facility | reaction | severity | + + + + + + | (no date) | Urticaria | [facility] | (no reaction) | (no severity) | | [facility] | | | + + + + + + | (no date) | Penicillin | [facility] | (no reaction) | (no severity) | | | [facility] | | | + + + + + + | (no date) | Penicillin | [facility] | (no reaction) | (no severity) | | | [facility] | | | + + + + + + | (no date) | Penicillins | [facility] | (no reaction) | (no severity) | + + + + + + | (no date) | vancomycin | [facility] | (no reaction) | (no severity) | + + + + + + | (no date) | Penicillin | [facility] | (no reaction) | (no severity) | | | [facility] | | | + + + + + + | (no date) | Penicillin | [facility] | (no reaction) | (no severity) | | | [facility] | | | + + + + + + Encounters No information. Functional Status No information. Immunizations No information. Medications + + + + | date | description | facility | + + + + | 2022-05-31 00:00 | CYANOCOBALAMIN (VITAMIN | [facility] | | | ) | | + + + + | 2019-04-28 00:00 | DOXYCYCLINE HYCLATE | [facility] | + + + + | 2017-07-12 00:00 | IBUPROFEN | [facility] | + + + + | 2022-05-31 00:00 | LISINOPRIL | [facility] | + + + + | 2019-04-28 00:00 | GLIMEPIRIDE | [facility] | + + + + | 2022-05-31 00:00 | GLIMEPIRIDE | [facility] | + + + + | 2019-04-28 00:00 | LEVOFLOXACIN | [facility] | + + + + | 2022-05-31 00:00 | ASCORBIC ACID | [facility] | + + + + | 2022-05-31 00:00 | ASPIRIN | [facility] | + + + + | 2018-12-19 00:00 | CEPHALEXIN | [facility] | + + + + | 2019-04-30 00:00 | METRONIDAZOLE | [facility] | + + + + | 2022-05-31 00:00 | CALCIUM CARBONATE | [facility] | + + + + | 2017-11-21 00:00 | NITROFURANTOIN MONOHYD | [facility] | | | MACROCR | | + + + + | 2019-04-28 00:00 | SITAGLIPTIN PHOSPHATE | [facility] | + + + + | 2022-05-31 00:00 | CADEXOMER IODINE | [facility] | + + + + | 2018-12-19 00:00 | | [facility] | | | SULFAMETHOXAZOLE/TRIMETHOPR | | | | IM DS | | + + + + | 2019-04-28 00:00 | METFORMIN HCL | [facility] | + + + + | 2019-04-15 00:00 | metFORMIN HCL | [facility] | + + + + Problems + + + + | date | description | facility | + + + + | 2017-04-09 00:00 | Paresthesia of right lower | [facility] | | | extremity | | + + + + | 2017-07-12 00:00 | Strain of left knee and | [facility] | | | leg | | + + + + | 2017-11-21 00:00 | Hyperglycemia | [facility] | + + + + | 2017-11-21 00:00 | Heat exhaustion | [facility] | + + + + | 2018-07-13 00:00 | Shoulder pain | [facility] | + + + + | 2018-12-19 00:00 | Cellulitis of right hand | [facility] | + + + + | 2019-04-15 00:00 | Cellulitis of left foot | [facility] | + + + + | 2019-04-15 00:00 | Puncture wound of foot | [facility] | + + + + | 2019-04-22 00:00 | Diabetic foot ulcer | [facility] | + + + + | 2021-07-01 00:00 | Hypertension | [facility] | + + + + | 2021-07-01 00:00 | High glucose level | [facility] | + + + + | 2021-07-01 00:00 | Chemical exposure | [facility] | + + + + | 2022-05-30 00:00 | Osteomyelitis of left foot | [facility] | | | | | + + + + | 2022-05-30 18:04 | TYPE 2 DIABETES MELLITUS | [facility] | | | WITHOUT COMPLICATIONS | | + + + + | 2022-05-30 18:04 | Essential (primary) | [facility] | | | hypertension | | + + + + | 2022-05-30 18:04 | OTHER SPECIFIED SOFT | [facility] | | | TISSUE DISORDERS | | + + + + | 2022-05-30 18:04 | OSTEOMYELITIS, UNSPECIFIED | [facility] | | | | | + + + + | 2022-05-30 18:04 | 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 | | + + + + | 2022-05-30 18:04 | ALLERGY STATUS TO | [facility] | | | PENICILLIN | | + + + + | 2022-09-07 18:41 | TYPE 2 DIABETES MELLITUS | [facility] | | | WITH HYPERGLYCEMIA | | + + + + | 2022-09-07 18:41 | Essential (primary) | [facility] | | | hypertension | | + + + + | 2022-09-07 18:41 | CEREBRAL INFARCTION, | [facility] | | | UNSPECIFIED | | + + + + | 2022-09-07 18:41 | ALLERGY STATUS TO | [facility] | | | PENICILLIN | | + + + + | 2022-10-25 11:39 | TYPE 2 DIABETES MELLITUS | [facility] | | | WITHOUT COMPLICATIONS | | + + + + | 2022-10-25 11:39 | TRANSIENT CEREBRAL | [facility] | | | ISCHEMIC ATTACK, | | | | UNSPECIFIED | | + + + + | 2022-10-25 11:39 | Essential (primary) | [facility] | | | hypertension | | + + + + | 2022-10-25 11:39 | ANESTHESIA OF SKIN | [facility] | + + + + | 2022-10-25 11:39 | RESIDENTIAL (CURRENT) USE OF | [facility] | | | ASPIRIN | | + + + + | 2022-10-25 11:39 | RESIDENTIAL (CURRENT) USE OF | [facility] | | | ORAL HYPOGLYCEMIC DRUGS | | + + + + | 2022-10-25 11:39 | OTHER RESIDENTIAL (CURRENT) | [facility] | | | DRUG THERAPY | | + + + + | 2022-10-25 11:39 | ALLERGY STATUS TO | [facility] | | | PENICILLIN | | + + + + | 2022-11-04 05:14 | SEPSIS, UNSPECIFIED | [facility] | | | ORGANISM | | + + + + | 2022-11-04 05:14 | OTH BACTERIAL AGENTS | [facility] | | | THE CAUSE OF DISEASES CLAS | | + + + + | 2022-11-04 05:14 | TYPE 2 DIABETES MELLITUS | [facility] | | | WITH FOOT ULCER | | + + + + | 2022-11-04 05:14 | TYPE 2 DIABETES MELLITUS | [facility] | | | WITH OTHER SKIN COMPLICAT | | + + + + | 2022-11-04 05:14 | TYPE 2 DIABETES MELLITUS | [facility] | | | WITH HYPERGLYCEMIA | | + + + + | 2022-11-04 05:14 | TYPE 2 DIABETES MELLITUS | [facility] | | | WITH OTHER SPECIFIED COMP | | + + + + | 2022-11-04 05:14 | HYPO-OSMOLALITY AND | [facility] | | | HYPONATREMIA | | + + + + | 2022-11-04 05:14 | ALCOHOL USE, UNSPECIFIED, | [facility] | | | UNCOMPLICATED | | + + + + | 2022-11-04 05:14 | Essential (primary) | [facility] | | | hypertension | | + + + + | 2022-11-04 05:14 | CEREBRAL INFARCTION, | [facility] | | | UNSPECIFIED | | + + + + | 2022-11-04 05:14 | HYPOTENSION, UNSPECIFIED | [facility] | + + + + | 2022-11-04 05:14 | CELLULITIS OF RIGHT UPPER | [facility] | | | LIMB | | + + + + | 2022-11-04 05:14 | CELLULITIS OF LEFT LOWER | [facility] | | | LIMB | | + + + + | 2022-11-04 05:14 | NON-PRS CHRONIC ULCER OTH | [facility] | | | PRT LEFT FOOT W NECROSIS | | + + + + | 2022-11-04 05:14 | NON-PRESSURE CHRONIC ULCER | [facility] | | | OTH PRT LEFT FOOT W UNS | | + + + + | 2022-11-04 05:14 | EFFUSION, LEFT ANKLE | [facility] | + + + + | 2022-11-04 05:14 | PAIN IN UNSPECIFIED | [facility] | | | SHOULDER | | + + + + | 2022-11-04 05:14 | OTHER ACUTE OSTEOMYELITIS, | [facility] | | | LEFT ANKLE AND FOOT | | + + + + | 2022-11-04 05:14 | OTHER OSTEOMYELITIS, ANKLE | [facility] | | | AND FOOT | | + + + + | 2022-11-04 05:14 | OSTEOMYELITIS, UNSPECIFIED | [facility] | | | | | + + + + | 2022-11-04 05:14 | ACUTE KIDNEY FAILURE, | [facility] | | | UNSPECIFIED | | + + + + | 2022-11-04 05:14 | SEVERE SEPSIS WITHOUT | [facility] | | | SEPTIC SHOCK | | + + + + | 2022-11-04 05:14 | PUNCTURE WOUND WITHOUT | [facility] | | | FOREIGN BODY, LEFT FOOT, IN | | | | | | + + + + | 2022-11-04 05:14 | EXPOSURE TO EXCESSIVE | [facility] | | | NATURAL HEAT, INITIAL | | | | ENCOUN | | + + + + | 2022-11-04 05:14 | CONTACT W AND EXPSR TO OTH | [facility] | | | HAZARD, CHIEFLY NONMED, | | + + + + | 2022-11-04 05:14 | RESIDENTIAL (CURRENT) USE OF | [facility] | | | ANTITHROMBOTICS/ANTIPLA | | + + + + | 2022-11-04 05:14 | HIGH SCHOOL ART TEACHER (CURRENT) USE OF | [facility] | | | INSULIN | | + + + + | 2022-11-04 05:14 | HIGH SCHOOL ART TEACHER (CURRENT) USE OF | [facility] | | | ASPIRIN | | + + + + | 2022-11-04 05:14 | 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 | | + + + + | 2022-11-04 05:14 | PRSNL HX OF TIA (TIA), AND | [facility] | | | 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 | | + + + + | 2022-11-04 05:14 | ALLERGY STATUS TO | [facility] | | | PENICILLIN | | + + + + | 2022-11-04 05:14 | ALLERGY STATUS TO OTHER | [facility] | | | ANTIBIOTIC AGENTS STATUS | | + + + + | 2022-11-04 05:14 | ACQUIRED ABSENCE OF OTHER | [facility] | | | LEFT TOE(S) | | + + + + | 2022-11-06 16:29 | TYPE 2 DIABETES MELLITUS | [facility] | | | WITH OTHER SPECIFIED | | | | COMPLICATION | | + + + + | 2022-11-06 16:29 | OSTEOMYELITIS, UNSPECIFIED | [facility] | | | | | + + + + | 2022-11-06 16:29 | ENCOUNTER FOR OTHER | [facility] | | | SPECIFIED PROPHYLACTIC | | | | MEASURES | | + + + + | 2022-11-07 16:04 | OSTEOMYELITIS, UNSPECIFIED | [facility] | | | | | + + + + | 2022-11-08 15:34 | ENCOUNTER FOR ADJUSTMENT | [facility] | | | AND MANAGEMENT OF VAD | | + + + + | 2022-11-09 15:47 | OSTEOMYELITIS, UNSPECIFIED | [facility] | | | | | + + + + | 2022-11-10 15:52 | OSTEOMYELITIS, UNSPECIFIED | [facility] | | | | | + + + + | 2022-11-11 15:45 | OSTEOMYELITIS, UNSPECIFIED | [facility] | | | | | + + + + | 2022-11-12 14:23 | OSTEOMYELITIS, UNSPECIFIED | [facility] | | | | | + + + + | 2022-11-13 15:04 | OSTEOMYELITIS, UNSPECIFIED | [facility] | | | | | + + + + | 2022-11-14 15:44 | TYPE 2 DIABETES MELLITUS | [facility] | | | WITH FOOT ULCER | | + + + + | 2022-11-14 15:44 | TYPE 2 DIABETES MELLITUS | [facility] | | | WITH OTHER SPECIFIED | | | | COMPLICATION | | + + + + | 2022-11-14 15:44 | Essential (primary) | [facility] | | | hypertension | | + + + + | 2022-11-14 15:44 | OSTEOMYELITIS, UNSPECIFIED | [facility] | | | | | + + + + | 2022-11-15 15:45 | TYPE 2 DIABETES MELLITUS | [facility] | | | WITH FOOT ULCER | | + + + + | 2022-11-15 15:45 | TYPE 2 DIABETES MELLITUS | [facility] | | | WITH OTHER SPECIFIED | | | | COMPLICATION | | + + + + | 2022-11-15 15:45 | OSTEOMYELITIS, UNSPECIFIED | [facility] | | | | | + + + + | 2022-11-16 15:42 | OSTEOMYELITIS, UNSPECIFIED | [facility] | | | | | + + + + | 2022-11-17 15:49 | OSTEOMYELITIS, UNSPECIFIED | [facility] | | | | | + + + + | 2022-11-18 15:40 | OSTEOMYELITIS, UNSPECIFIED | [facility] | | | | | + + + + | 2022-11-19 15:13 | OSTEOMYELITIS, UNSPECIFIED | [facility] | | | | | + + + + | 2022-11-20 15:10 | OSTEOMYELITIS, UNSPECIFIED | [facility] | | | | | + + + + | 2022-11-21 15:43 | OSTEOMYELITIS, UNSPECIFIED | [facility] | | | | | + + + + | 2022-11-22 15:42 | OTHER ACUTE OSTEOMYELITIS, | [facility] | | | LEFT ANKLE AND FOOT | | + + + + | 2022-11-23 15:41 | NONSPECIFIC LOW | [facility] | | | BLOOD-PRESSURE READING | | + + + + | 2022-11-23 15:41 | FEVER, UNSPECIFIED | [facility] | + + + + | 2022-11-24 15:47 | OSTEOMYELITIS, UNSPECIFIED | [facility] | | | | | + + + + | 2022-11-25 15:41 | OSTEOMYELITIS, UNSPECIFIED | [facility] | | | | | + + + + | 2022-11-26 15:10 | OSTEOMYELITIS, UNSPECIFIED | [facility] | | | | | + + + + | 2022-11-27 15:00 | OSTEOMYELITIS, UNSPECIFIED | [facility] | | | | | + + + + Procedures No information. Results/Labs +--------+--------+ +---------+--------+---------+ | test | date | facility | value | unit | notes | +--------+--------+ +---------+--------+---------+ + + | Result panel 1 | + + + + + +-------+ + + | | 2022-05-30 | [facility] | 200 | (missing) | (missing) | | (unavailable | 20:36:08 [facility] | | | | + + + +-------+ + + + + | Result panel 2 | + + + + + +-------+---------+ + | | 2022-05-30 | [facility] | 206 | mg/dL | (missing) | | (unavailable | 23::08 | [facility] | | | | + + + +-------+---------+ + + + | Result panel 3 | + + + + + +------+---------+ + | | 2022-05-30 | [facility] | 14 | mg/dL | (missing) | | (unavailable | 23::08 | [facility] | | | | + + + +------+---------+ + + + | Result panel 4 | + + + + + +--------+---------+ + | | 2022-05-30 | [facility] | 0.93 | mg/dL | (missing) | | (unavailable | 23:12:08 [facility] | | | | + + + +--------+---------+ + + + | Result panel 5 | + + + + + +------+ + + | | 2022-05-30 | [facility] | 92 | (missing) | (missing) | | (unavailable | 23:12:08 [facility] | | | | + + + +------+ + + + + | Result panel 6 | + + + + + +---------+ + + | | 2022-05-30 | [facility] | 15.05 | (missing) | (missing) | | (unavailable | 23::08 [facility] | | | | + + + +---------+ + + + + | Result panel 7 | + + + + + +-------+ + + | | 2022-05-30 | [facility] | 139 | (missing) | (missing) | | (unavailable | 23:12:08 [facility] | | | | + + + +-------+ + + + + | Result panel 8 | + + + + + +-------+ + + | | 2022-05-30 | [facility] | 4.0 | (missing) | (missing) | | (unavailable | 23:12:08 [facility] | | | | + + + +-------+ + + + + | Result panel 9 | + + + + + +-------+ + + | | 2022-05-30 | [facility] | 101 | (missing) | (missing) | | (unavailable | 23:12:08 [facility] | | | | + + + +-------+ + + + + | Result panel 10 | + + + + + +------+ + + | | 2022-05-30 | [facility] | 31 | (missing) | (missing) | | (unavailable | 23:12:08 [facility] | | | | + + + +------+ + + + + | Result panel 11 | + + + + + +--------+ + + | | 2022-05-30 | [facility] | 11.0 | (missing) | (missing) | | (unavailable | 23::08 [facility] | | | | + + + +--------+ + + + + | Result panel 12 | + + + + + +-------+---------+ + | | 2022-05-30 | [facility] | 9.0 | mg/dL | (missing) | | (unavailable | :08 | [facility] | | | | + + + +-------+---------+ + + + | Result panel 13 | + + + + + +-------+ + + | | 2022-05-30 | [facility] | 7.5 | (missing) | (missing) | | (unavailable | ::08 | [facility] | | | | + + + +-------+ + + + + | Result panel 14 | + + + + + +-------+ + + | | 2022-05-30 | [facility] | 2.7 | (missing) | (missing) | | (unavailable | 23:12:08 [facility] | | | | + + + +-------+ + + + + | Result panel 15 | + + + + + +-------+ + + | | 2022-05-30 | [facility] | 4.8 | (missing) | (missing) | | (unavailable | 23:12:08 [facility] | | | | + + + +-------+ + + + + | Result panel 16 | + + + + + +--------+ + + | | 2022-05-30 | [facility] | 0.56 | (missing) | (missing) | | (unavailable | 23:12:08 [facility] | | | | + + + +--------+ + + + + | Result panel 17 | + + + + + +-------+ + + | | 2022-05-30 | [facility] | 0.8 | (missing) | (missing) | | (unavailable | 23:12:08 [facility] | | | | + + + +-------+ + + + + | Result panel 18 | + + + + + +------+ + + | | 2022-05-30 | [facility] | 27 | (missing) | (missing) | | (unavailable | 23:12:08 [facility] | | | | + + + +------+ + + + + | Result panel 19 | + + + + + +------+ + + | | 2022-05-30 | [facility] | 24 | (missing) | (missing) | | (unavailable | 23:12:08 [facility] | | | | + + + +------+ + + + + | Result panel 20 | + + + + + +------+ + + | | 2022-05-30 | [facility] | 97 | (missing) | (missing) | | (unavailable | 23:12:08 [facility] | | | | + + + +------+ + + + + | Result panel 21 | + + + + + +-------+ + + | | 2022-05-30 | [facility] | 5.6 | (missing) | (missing) | | (unavailable | 23:28:08 [facility] | | | | + + + +-------+ + + + + | Result panel 22 | + + + + + +--------+ + + | | 2022-05-30 | [facility] | 54.7 | (missing) | (missing) | | (unavailable | 23:28:08 [facility] | | | | + + + +--------+ + + + + | Result panel 23 | + + + + + +--------+ + + | | 2022-05-30 | [facility] | 31.8 | (missing) | (missing) | | (unavailable | :28:08 | [facility] | | | | + + + +--------+ + + + + | Result panel 24 | + + + + + +-------+ + + | | 2022-05-30 | [facility] | 7.9 | (missing) | (missing) | | (unavailable | 23:28:08 [facility] | | | | + + + +-------+ + + + + | Result panel 25 | + + + + + +-------+ + + | | 2022-05-30 | [facility] | 4.5 | (missing) | (missing) | | (unavailable | 23:28:08 [facility] | | | | + + + +-------+ + + + + | Result panel 26 | + + + + + +-------+ + + | | 2022-05-30 | [facility] | 1.1 | (missing) | (missing) | | (unavailable | :08 | [facility] | | | | + + + +-------+ + + + + | Result panel 27 | + + + + + +--------+ + + | | 2022-05-30 | [facility] | 4.50 | (missing) | (missing) | | (unavailable | ::08 | [facility] | | | | + + + +--------+ + + + + | Result panel 28 | + + + + + +--------+ + + | | 2022-05-30 | [facility] | 11.8 | (missing) | (missing) | | (unavailable | 23:28:08 [facility] | | | | + + + +--------+ + + + + | Result panel 29 | + + + + + +--------+ + + | | 2022-05-30 | [facility] | 36.0 | (missing) | (missing) | | (unavailable | 23:28:08 [facility] | | | | + + + +--------+ + + + + | Result panel 30 | + + + + + +--------+ + + | | 2022-05-30 | [facility] | 80.1 | (missing) | (missing) | | (unavailable | 23:28:08 [facility] | | | | + + + +--------+ + + + + | Result panel 31 | + + + + + +--------+ + + | | 2022-05-30 | [facility] | 26.3 | (missing) | (missing) | | (unavailable | 23:28:08 [facility] | | | | + + + +--------+ + + + + | Result panel 32 | + + + + + +--------+ + + | | 2022-05-30 | [facility] | 32.8 | (missing) | (missing) | | (unavailable | 23:28:08 [facility] | | | | + + + +--------+ + + + + | Result panel 33 | + + + + + +--------+ + + | | 2022-05-30 | [facility] | 14.5 | (missing) | (missing) | | (unavailable | 23:28:08 [facility] | | | | + + + +--------+ + + + + | Result panel 34 | + + + + + +-------+ + + | | 2022-05-30 | [facility] | 207 | (missing) | (missing) | | (unavailable | 23:28:08 [facility] | | | | + + + +-------+ + + Social History No information. Vital Signs + + + +---------+ | date | measurement | value | units | + + + +---------+ | 2022-05-30 00:00 | BMI | 31.9 | kg/m2 | + + + +---------+ | 2022-05-30 00:00 | height_metric | 177.8 | cm | + + + +---------+ | 2022-05-30 00:00 | height_standard | 70 | in | + + + +---------+ | 2022-05-30 00:00 | weight_metric | 100.7 | kg | + + + +---------+ | 2022-05-30 00:00 | weight_standard | 222 | lb | + + + +---------+ | 2022-05-30 00:00 | weight_standard | 222.01 | lb | + + + +---------+ | 2022-05-31 00:00 | BP_diastolic | 69 | mmHg | + + + +---------+ | 2022-05-31 00:00 | BP_systolic | 146 | mmHg | + + + +---------+ | 2022-05-31 00:00 | heart_rate | 90 | /min | + + + +---------+ | 2022-05-31 00:00 | o2_saturation | 95 | % | + + + +---------+ | 2022-05-31 00:00 | respiration_rate | 20 | /min | + + + +---------+ | 2022-05-31 00:00 | temperature_metric | 37.06 | C | | | | | | + + + +---------+ | 2022-05-31 00:00 | | 98.7 | F | | | temperature_standar | | | | | d | | | + + + +---------+"
--- OUTSIDE RECORDS SUMMARY | ~2022-11-29 | XMS | Continuity of Care Document ---
Demographics + + + | Address | [address] | | | [place] [address] | + + + | Preferred Language | Unknown | + + + | Marital Status | | + + + | Pentecostalism Affiliation | Unknown | + + + | Race | or | + + + | Ethnic Group | Not or | + + + Author + + + | Author | [facility] | + + + | Organization | [facility] | + + + | Address | [address] | | | [place] [address] | + + + | Phone | | + + + Care Team Providers + + + + | Care Junior Marketing Associate Name | Role | Phone | + [...] | 2022-05-31 00:00 | CYANOCOBALAMIN (VITAMIN | [facility] | | | ) | | + + + + | 2019-04-28 00:00 | DOXYCYCLINE HYCLATE | [facility] | + + + + | 2017-07-12 00:00 | IBUPROFEN | [facility] | + + + + | 2022-05-31 00:00 | LISINOPRIL | [facility] | + + + + | 2019-04-28 00:00 | GLIMEPIRIDE | [facility] | + + + + | 2022-05-31 00:00 | GLIMEPIRIDE | [facility] | + + + + | 2019-04-28 00:00 | LEVOFLOXACIN | [facility] | + + + + | 2022-05-31 00:00 | ASCORBIC ACID | [facility] | + + + + | 2022-05-31 00:00 | ASPIRIN | [facility] | + + + + | 2018-12-19 00:00 | CEPHALEXIN | [facility] | + + + + | 2019-04-30 00:00 | METRONIDAZOLE | [facility] | + + + + | 2022-05-31 00:00 | CALCIUM CARBONATE | [facility] | + + + + | 2017-11-21 00:00 | NITROFURANTOIN MONOHYD | [facility] | | | MACROCR | | + + + + | 2019-04-28 00:00 | SITAGLIPTIN PHOSPHATE | [facility] | + + + + | 2022-05-31 00:00 | CADEXOMER IODINE | [facility] | + + + + | 2018-12-19 00:00 | | [facility] | | | SULFAMETHOXAZOLE/TRIMETHOPR | | | | IM DS | | + + + + | 2019-04-28 00:00 | METFORMIN HCL | [facility] [place] | + + + + | 2019-04-15 00:00 | metFORMIN HCL | [facility] | + + + + Problems + + + + | date | description | facility | + + + + | 2017-04-09 00:00 | Paresthesia of right lower | [facility] [place] | | | extremity | | + + + + | 2017-07-12 00:00 | Strain of left knee and | [facility] [place] | | | leg | | + + + + | 2017-11-21 00:00 | Hyperglycemia | [facility] [place] | + + + + | 2017-11-21 00:00 | Heat exhaustion | [facility] | + + + + | 2018-07-13 00:00 | Shoulder pain | [facility] | + + + + | 2018-12-19 00:00 | Cellulitis of right hand | [facility] | + + + + | 2019-04-15 00:00 | Cellulitis of left foot | [facility] [place] | + + + + | 2019-04-15 00:00 | Puncture wound of foot | [facility] | + + + + | 2019-04-22 00:00 | Diabetic foot ulcer | [facility] [place] | + + + + | 2021-07-01 00:00 | Hypertension | [facility] | + + + + | 2021-07-01 00:00 | High glucose level | [facility] [place] | + + + + | 2021-07-01 00:00 | Chemical exposure | [facility] | + + + + | 2022-05-30 00:00 | Osteomyelitis of left foot | [facility] | | | | | + + [...] + + | 2022-05-30 18:04 | OTHER [employer] (CURRENT) | [facility] | | | DRUG [...] + + + | 2022-10-25 11:39 | [facility] (CURRENT) USE OF | [facility] | | | [facility] | | + + + + | 2022-10-25 11:39 | SN[facility] (CURRENT) USE OF | [facility] | | | ORAL HYPOGLYCEMIC DRUGS | | + + + + | 2022-10-25 11:39 | OTHER SNF (CURRENT) | [facility] | | | DRUG [...] + + + | 2022-11-04 05:14 | SNF (CURRENT) USE OF | [facility] | | | ANTITHROMBOTICS/ANTIPLA | | + + + + | 2022-11-04 05:14 | [employer] (CURRENT) USE OF | [facility] | | | INSULIN | | + + + + | 2022-11-04 05:14 | [employer] (CURRENT) USE OF | [facility] | | | ASPIRIN | | + + + + | 2022-11-04 05:14 | OTHER [employer] (CURRENT) | [facility] | | | DRUG [...]
[~2022-11-29 16:01] MED LIST changes: +DAPTOMYCIN500 MG IV; +SULFAMETHOXAZO1 EAC1 PO
--- OUTSIDE RECORDS SUMMARY | 2022-11-29 16:11 | XMS ---
PreManage Notification: DIANA BURNS Security Options Trader Events No recent Security Events currently on file CRITERIA MET - Group Notification - [facility] - 2 Visits in 30 Days - [facility] - Has Care Guidelines CARE PROVIDERS DORIS MATAMOROS Physician Meat Grader: Surgical 07/16/2018-Current PHONE: Unknown ESTELA LEON [facility] 11/21/2017-Current PHONE: [phone] SHADY DUBON Nurse Practitioner 12/20/2018-Current PHONE: [phone] LANDY CARR Case Management 07/02/2021-[facility] PHONE: [phone] [facility] 04/16/2019-[facility] PHONE: [phone] Sam has no Care Guidelines for this patient. Care History Medical/Surgical 07/01/2021 [facility] \T\middot;\T\nbsp; PATIENT- [facility] ELIGIBLE \T\middot;\T\nbsp; PLEASE REFER PATIENT TO [facility] FOR NON EMERGENT MEDICAL NEEDS. \T\middot;\ T\nbsp; [facility] CAN SEE PATIENTS SAME DAY FOR APTS IF PATIENT CALLS FIRST THING IN THE MORNING. E.D. VISIT COUNT (12 MO.) [address] [place] [address]. TOTAL 5 NOTE: Visits indicate total known visits. ED/UCC VISIT TRACKING (12 MO.) 11/29/2022 16:02 [facility] TYPE: Emergency COMPLAINT: - WOUND CHECK 11/03/2022 21:36 [facility] TYPE: Emergency COMPLAINT: - FEVER/ LT FOOT SWELLING 10/25/2022 11:39 [facility] TYPE: Emergency COMPLAINT: - R SIDE FACE NUMBNESS, R ARM/ELBOW NUMBNESS DIAGNOSES: - Allergy status to penicillin - Anesthesia of skin - Essential (primary) hypertension - senior care (current) use of aspirin - terminal computer operator (current) use of oral hypoglycemic drugs - Other nursing home (current) drug therapy - Transient cerebral ischemic attack, unspecified - Type 2 diabetes mellitus without complications 09/07/2022 18:40 [facility] TYPE: Emergency COMPLAINT: - NUMBNESS 05/30/2022 18:04 [facility] TYPE: Emergency COMPLAINT: - L FOOT PAIN/NO INJ DIAGNOSES: - Allergy status to penicillin - Essential (primary) hypertension - Osteomyelitis, unspecified - Other terminal operations supervisor (current) drug therapy - Other specified soft tissue disorders - Type 2 diabetes mellitus without complications INPATIENT VISIT TRACKING (12 MO.) 11/04/2022 05:14 [facility] TYPE: Medical Surgical COMPLAINT: - OSTEOMYELITIS DIAGNOSES: - Acquired absence of other left toe(s) - Acquired absence of other left toe(s) - Acute kidney failure, unspecified - Acute kidney failure, unspecified - Alcohol use, unspecified, uncomplicated - Allergy status to other antibiotic agents - Allergy status to other antibiotic agents - Allergy status to penicillin - Allergy status to penicillin - Cellulitis of left lower limb - Cellulitis of right upper limb - Cerebral infarction, unspecified - Contact with and (suspected) exposure to COVID-19 - Contact with and (suspected) exposure to COVID-19 - Contact with and (suspected) exposure to other hazardous, chiefly nonmedicinal, chemicals - Effusion, left ankle - Essential (primary) hypertension - Essential (primary) hypertension - Exposure to excessive natural heat, initial encounter - Hypo-osmolality and hyponatremia - Hypo-osmolality and hyponatremia - Hypotension, unspecified - terminal computer operator (current) use of antithrombotics/antiplatelets - senior care (current) use of antithrombotics/antiplatelets - senior care (current) use of aspirin - terminal computer operator (current) use of aspirin - senior care (current) use of insulin - senior care (current) use of insulin - Non-pressure chronic ulcer of other part of left foot with necrosis of bone - Non-pressure chronic ulcer of other part of left foot with necrosis of bone - Non-pressure chronic ulcer of other part of left foot with unspecified severity - Non-pressure chronic ulcer of other part of left foot with unspecified severity - Osteomyelitis, unspecified - Other acute osteomyelitis, left ankle and foot - Other acute osteomyelitis, left ankle and foot - Other terminal operations supervisor (current) drug therapy - Other terminal operations supervisor (current) drug therapy - Other osteomyelitis, ankle and foot - Other osteomyelitis, ankle and foot - Other specified bacterial agents as the cause of diseases classified elsewhere - Pain in unspecified shoulder - Personal history of transient ischemic attack (TIA), and cerebral infarction without residual deficits - Personal history of transient ischemic attack (TIA), and cerebral infarction without residual deficits - Puncture wound without foreign body, left foot, initial encounter - Sepsis, unspecified organism - Sepsis, unspecified organism - Severe sepsis without septic shock - Severe sepsis without septic shock - Type 2 diabetes mellitus with foot ulcer - Type 2 diabetes mellitus with foot ulcer - Type 2 diabetes mellitus with hyperglycemia - Type 2 diabetes mellitus with hyperglycemia - Type 2 diabetes mellitus with other skin complications - Type 2 diabetes mellitus with other specified complication - Type 2 diabetes mellitus with other specified complication 09/07/2022 18:41 [facility] TYPE: Observation COMPLAINT: - CVA DIAGNOSES: - Allergy status to penicillin - Cerebral infarction, unspecified - Essential (primary) hypertension - Type 2 diabetes mellitus with hyperglycemia [email or web address]
[2022-11-29 17:10] VITALS: BP 155/79
== END 2022-11-29 17:10 | disposition home or self-care (01) ==
LOC: ED 16:01
DX: Z48.89 Encounter for other specified surgical aftercare (principal); E11.9 Type 2 diabetes mellitus without complications; I10 Essential (primary) hypertension; Z89.422 Acquired absence of other left toe(s); Z88.0 Allergy status to penicillin; Z88.1 Allergy status to other antibiotic agents; Z79.899 Other long term (current) drug therapy; Z79.82 Long term (current) use of aspirin
CPT/HCPCS: 99282

== ENCOUNTER 2023-02-22 05:45 | Day surgery (SDC) | payer BC, OTHER ==
[2023-02-15 15:16] VITALS: BP 144/77
[~2023-02-22] VITALS: Ht 177.8 cm; Wt 95.5 kg
[~2023-02-22 05:45] MED LIST changes: +CIPRO500 MG PO
[2023-02-22 06:12] VITALS: BP 213/97
[2023-02-22 06:34] VITALS: BP 205/94
[2023-02-22 09:44] VITALS: BP 196/87
--- NOTE | 2023-02-22 09:57 | NUR ---
02/22/23 0957 Elizabeth Quick Bre 0821- PT ARRIVES TO PACU, SEMI ZAMORA POSITION. OPA IN PLACE, 6L O2 PER MASK, MAINTAINING AIRWAY WITH JUST OPA. LR INFUSING TO LH IV. NO REACTIVE TO STIMULUS AT THIS TIME. DRESSING TO LEFT FOOT, CDI. XRAY ORDERED PER DR GANNON. ALL MONITORS IN PLACE, WILL CONTINUE TO MONITOR. 0830- PT REACTIVE TO TACTILE STIMULI, SQUINTING EYES AND ATTEMPTING TO VOCALIZE WITH OPA IN PLACE. PT FOLLOWS COMMANDS TO MOVE OPA, BACK TO RESTING. O2 REMAINS IN PLACE VIA MASK. WILL CONTINUE TO MONITOR. 0834- XRAY COMPLETED. PT RESTING, SNORING INTERMITTENTLY, DECREASES WITH CHANGING HEAD POSITION. PT CONTINUES TO BE REACTIVE TO STIMULUS BUT DOESN'T OPEN EYES. 0845- PT OPENS EYES AND LOOKING AROUND, YAWNING AND STRETCHING. SOMEWHAT DROWSY, ANSWERING QUESTIONS APPROPRIATELY. PT BP IS HIGH IN THE 180'S SYSTOLIC. PT REPORTS HE IS SUPPOSED TO TAKE BP MEDICATIONS BUT HE HASN'T FOR A WHILE BECAUSE HE HAS A "DIFFERENCE OF OPINION". ENCOURAGED PT TO FOLLOW UP WITH DR REGARDING BP, EXPLAINING RISKS THAT INCLUDE STROKE NOT BEING NORMAL SELF AND DIALYSIS AND . PT STATES "I REFUSE TO GO TO THE DR AND THIS ALLYSON JUST WORKS ON THE FOOT". PT STATES "I'M NOT GOING TO LIVE FOREVER". CBG 152 0850- PT SITTING UP DRINKING COFFEE. 0910- PT UP TO SIDE OF BED TO GET DRESSED, TOLERATING WELL. 0927- POST OP SHOE PLACED TO LEFT FOOT. SALINE LOCK REMOVED, TIP INTACT, DRESSING APPLIED. PT TRANSFERS WITHOUT DIFFICULTY TO WHEELCHAIR. AGAIN ENCOURAGED PT TO FOLLOW UP WITH A DR REGARDING BP, PT STATES "YEAH OK". VERBALIZED UNDERSTANDING OF INSTRUCTIONS, PT OUT TO FAMILY CAR, ALERT AND ORIENTED, NO SIGNS OF DISTRESS. TRANSFERRED TO CAR WITHOUT DIFFICULTY.
--- NOTE | 2023-02-24 15:04 | PATH ---
[facility] [address], [place] [address] Signed SPECIMEN(S): A LEFT 4TH METATARSAL SPECIMEN SOURCE: A. LEFT 4TH METATARSAL CLINICAL HISTORY: Osteomyelitis of left foot. FINAL PATHOLOGIC DIAGNOSIS: Left 4th metatarsal: - Bone with marrow fibrosis with acute and chronic inflammation consistent with osteomyelitis. JVR:[facility] MICROSCOPIC EXAMINATION: Histologic sections of all submitted blocks are examined by light microscopy. These findings, together with the gross examination, support the pathologic diagnosis. GROSS DESCRIPTION: The specimen, labeled and designated "Bill, fourth metatarsal," is received in formalin and consists of three fragments of pink-white ragged bone aggregating to 3.8 x 3.5 x 1.4 cm. The transected surface is inked green. The tissue is sectioned to reveal bucio compact and trabecular cut surfaces with no abnormalities seen. A charter representative section of each fragment to include the transected margin, ink side down, are submitted in (A1) following decalcification in decal stat. ABIGAIL (under the direct supervision of a pathologist) The Gross Description was prepared using a voice recognition system. The report was reviewed for accuracy; however, sound-alike word errors, addition and/or deletions may occur. If there is any question about this report, please contact Client Services. PERFORMING LABORATORY: Technical component was performed by [facility], [address] [place] [id number] (CLIA# [id number]). Professional interpretation was performed by [facility], [address] [place] [id number] (CLIA#: [id number]). Diagnostician: Gustavo Lopez MD PATIENT NAME: DIANA BURNS PATHOLOGY DATE OF : 56 REPORT #: [id number] PHYSICIAN: ANT[facility]LLA PATHOLOGY PCP: KAVON GIBSON REPORT IS CONFIDENTIAL AND NOT TO BE RELEASED WITHOUT AUTHORIZATION [address] [address] Signed Pathologist Electronically Signed 02/24/2023 Copies: ~ PATIENT NAME: DIANA BURNS PATHOLOGY DATE OF : 56 REPORT #: [id number] PHYSICIAN: ANTONELLA PATHOLOGY PCP: KAVON GIBSON REPORT IS CONFIDENTIAL AND NOT TO BE RELEASED WITHOUT AUTHORIZATION
--- NOTE | 2023-03-01 16:30 | OR ---
[facility] [address] [place], [place] [address] Signed DATE OF OPERATION: 02/22/2023 SURGEON: Manuel Kellogg DPM PREOPERATIVE DIAGNOSES: 1. Diabetes with peripheral neuropathy. 2. Osteomyelitis, left foot. POSTOPERATIVE DIAGNOSES: 1. Diabetes with peripheral neuropathy. 2. Osteomyelitis, left foot. PROCESSING LEAD: Toribio Palomares DPM. ANESTHESIA: IV general with local block, left foot. HORSER UP: Manuel Myrick. SPECIMEN TO PATHOLOGY: Bone of left 4th metatarsal. PROCEDURE: Debridement of osteomyelitis, left 4th metatarsal. DESCRIPTION OF PROCEDURE: The patient was brought to the operating room and placed on the table in the supine position. Anesthesia Department administered IV sedation after which a local block was given to the left foot using a total of 8 mL 1:1 mixture 2% lidocaine plain and 0.5% ropivacaine plain. The left leg and foot were then prepped and draped in the usual sterile manner and an Esmarch was used for hemostasis. Attention was initially directed to the dorsal/lateral aspect of left foot. The left foot has had previous amputation/debridement procedures and the 4th and 5th toes have been previously amputated along with majority of 5th metatarsal and the distal 4th metatarsal. The incision was linear and longitudinal directly over a scar from previous surgery. The incision was full thickness through the dermis, then deepened with sharp and blunt dissection through the soft tissues to the level of bone. Soft tissues then Electronically Signed By: MANUEL KELLOGG DPM 03/01/23 1630 PATIENT NAME: DIANA BURNS OPERATIVE REPORT DATE OF : 56 REPORT #: [id number] PHYSICIAN: MANUEL KELLOGG DPM PCP: KAVON GIBSON ASSISTANT PROFESSOR OF RELIGION-BC REPORT IS CONFIDENTIAL AND NOT TO BE RELEASED WITHOUT AUTHORIZATION [facility] [address] [place] [id number] Signed reflected to expose bone of the 4th metatarsal. The 4th metatarsal was then identified with intraoperative fluoroscopy and dissection carried proximal along the 4th metatarsal and with use of power instrumentation, the 4th metatarsal sectioned proximally and then removed leaving approximately 2 cm of the base of the 4th metatarsal at approximately same level as previous amputation to 5th metatarsal. The bone at the level of the osteotomy 4th metatarsal was solid and had normal color and appearance both externally as well as to the medullary area. The surrounding soft tissues were without discoloration or necrosis, there appeared to be a significant amount of scar tissue from previous surgeries. At this time, a search for any remaining bone fragments was made and there were bone fragments identified particularly at the distal 4th metatarsal area due to the soft nature of the bone at this area as a result of the bone infection. Additional debridement then performed to eliminate any remaining bone fragments. The surgical site irrigated with Irrisept irrigation and then the closure was begun. Prior to closure, calcium sulfate antibiotic beads were placed within the wound site. The antibiotic beads contain vancomycin and tobramycin. The surgical site was then closed using 3-0 nylon monofilament suture. Dressings were applied consisting of Adaptic, Betadine-soaked gauze, dry gauze, ABD pad, and Flexicon with Coban for mild compression. ESTIMATED BLOOD LOSS: Less than 10 mL. INTRAOPERATIVE COMPLICATIONS: None. The patient tolerated the procedure and the anesthesia well and left the operating room with vital signs stable and vascular status intact to the left foot as evidenced by hyperemia with removal of the Esmarch. Manuel Kellogg DPM DFB/MODL /[id number] Electronically Signed By: MANUEL KELLOGG DPM 03/01/23 1630 PATIENT NAME: DIANA BURNS OPERATIVE REPORT DATE OF : 56 REPORT #: [id number] PHYSICIAN: MANUEL KELLOGG DPM PCP: KAVON GIBSONP-BC REPORT IS CONFIDENTIAL AND NOT TO BE RELEASED WITHOUT AUTHORIZATION [facility] [address] [place] [address] [place], [place] [address] Signed Copies: ~ Electronically Signed By: MANUEL KELLOGG DPM 03/01/23 1630 PATIENT NAME: DIANA BURNS OPERATIVE REPORT DATE OF : 56 REPORT #: [id number] PHYSICIAN: MANUEL KELLOGG DPM PCP: KAVON GIBSON [facility] REPORT IS CONFIDENTIAL AND NOT TO BE RELEASED WITHOUT AUTHORIZATION
== END 2023-02-22 09:27 | disposition home or self-care (01) ==
LOC: DS 05:45
PROVIDERS: ATTEND Podiatrist Foot Surgery
PROC: 0Y6W0Z3 Detachment at Left 4th Toe, Low, Open Approach (ICD-10-PCS; principal; 2023-02-22 07:30)
DX: E11.69 Type 2 diabetes mellitus with other specified complication (principal); E11.42 Type 2 diabetes mellitus with diabetic polyneuropathy; M86.9 Osteomyelitis, unspecified; E11.621 Type 2 diabetes mellitus with foot ulcer; L97.522 Non-pressure chronic ulcer of other part of left foot with fat layer exposed
CPT/HCPCS: 01480; 73620; 73630; 87070; 87075; 87205; C1713; J1100; J2001; J2250; J2405; J2704; J2795; J3260; J3370; J3490; J7121

== ENCOUNTER 2024-03-01 08:33 | Emergency (ER) | payer BC, OTHER ==
[~2024-03-01] VITALS: Ht 177.8 cm; Wt 98.0 kg
[2024-03-01] MEDS ORDERED: B12 ACTIVE1000 MCG PO (08:50)
[2024-03-01] MEDS ORDERED: KETOROLAC TROMETHAMINE 30 MG/ML VIAL IV ONE (09:15)
[2024-03-01] MEDS ORDERED: ondansetron HCL 4 MG/2 ML VIAL IV ONE (09:15)
[2024-03-01] MEDS ORDERED: SODIUM CHLORIDE 0.9% 1,000 ML IV ONE (09:15)
[2024-03-01 09:30] LABS: BASOPHILS 1.3 % (0-2); EOSINOPHILS 3.4 % (0-6); HEMATOCRIT 36.6 % (35.0-50.0); HEMOGLOBIN 12.7 g/dL (12.0-18.0); LYMPHOCYTES 20.7 % (24-44); MCH 28.2 (27-36); MCHC 34.8 g/dl (30-36); MCV 80.8 fl (81-99); MONOCYTES 8.6 % (0-12); PLATELET COUNT 128 K/uL (140-440); RBC 4.53 M/ul (4.3-5.7); RDW 14.6 (10.5-15.0)
[2024-03-01 09:48] LABS: ALBUMIN 2.5 g/dL (3.4-5.0); ALBUMIN/GLOBULIN RATIO 0.64 (1.1-2.4); ANION GAP 9.5 (7-21); BILIRUBIN, TOTAL 1.2 ng/dL (0.2-1.0); BUN/CREATININE RATIO 18.33 (6.0-28.6); CREATININE, SERUM 1.2 mg/dL (0.70-1.30); POTASSIUM 3.5 mmol/L (3.5-5.1); PROTEIN, TOTAL 6.4 g/dL (6.4-8.2)
[2024-03-01 10:20] LABS: INFLUENZA B NAA NEGATIVE (NEGATIVE); RESPIRATORY SYNCYTIAL VIR NAA NEGATIVE (NEGATIVE)
[2024-03-01] MEDS ORDERED: INHALER, ASSIST DEVICES 1 EACH SPACER MISC ONE (11:15)
[2024-03-01] MEDS ORDERED: ALBUTEROL SULFATE 8 GM HOME.PACK INH ONE (11:15)
[2024-03-01] MEDS ORDERED: VENTOLIN HFA18 GM INH (11:18)
[2024-03-01 11:32] VITALS: BP 181/87
== END 2024-03-01 11:29 | disposition home or self-care (01) ==
LOC: ED 08:33
PROVIDERS: Emergency Medicine
DX: J20.9 Acute bronchitis, unspecified (principal); E11.9 Type 2 diabetes mellitus without complications; I10 Essential (primary) hypertension; Z86.73 Personal history of transient ischemic attack (TIA), and cerebral infarction without residual deficits; Z88.0 Allergy status to penicillin; Z88.1 Allergy status to other antibiotic agents; Z79.82 Long term (current) use of aspirin; Z79.899 Other long term (current) drug therapy
CPT/HCPCS: 36415; 71045; 80053; 85025; 87502; 96374; 96375; 99284-25; J1885; J2405; J7030; U0002

== ENCOUNTER 2024-05-14 15:48 | Emergency (ER) | payer BC, OTHER ==
[~2024-05-14] VITALS: Ht 177.8 cm; Wt 99.3 kg
[~2024-05-14 15:48] MED LIST changes: +B12 ACTIVE1000 MCG PO; +VENTOLIN HFA18 GM INH
[2024-05-14 16:52] LABS: BASOPHILS 1.3 % (0-2); EOSINOPHILS 8.2 % (0-6); HEMATOCRIT 39.2 % (35.0-50.0); HEMOGLOBIN 13.1 g/dL (12.0-18.0); LYMPHOCYTES 28.1 % (24-44); MCH 27.2 (27-36); MCHC 33.6 g/dl (30-36); MONOCYTES 7.1 % (0-12); NEUTROPHILS 55.3 % (39-80); PLATELET COUNT 157 K/uL (140-440); RBC 4.84 M/ul (4.3-5.7); RDW 15.1 (10.5-15.0)
[2024-05-14 17:01] LABS: ALBUMIN 2.5 g/dL (3.4-5.0); ALBUMIN/GLOBULIN RATIO 0.61 (1.1-2.4); ANION GAP 10.7 (7-21); BILIRUBIN, TOTAL 0.6 ng/dL (0.2-1.0); BUN/CREATININE RATIO 13.7 (6.0-28.6); CALCIUM 8.4 mg/dL (8.5-10.1); CREATININE, SERUM 1.24 mg/dL (0.70-1.30); POTASSIUM 3.7 mmol/L (3.5-5.1); PROTEIN, TOTAL 6.6 g/dL (6.4-8.2)
[2024-05-14] MEDS ORDERED: ACETAMINOPHEN 500 MG TAB PO ONE (18:00)
[2024-05-14 18:03] VITALS: BP 196/100
== END 2024-05-14 18:04 | disposition home or self-care (01) ==
LOC: ED 15:48
PROVIDERS: Emergency Medicine
DX: E11.42 Type 2 diabetes mellitus with diabetic polyneuropathy (principal); I10 Essential (primary) hypertension; Z86.73 Personal history of transient ischemic attack (TIA), and cerebral infarction without residual deficits; Z88.0 Allergy status to penicillin; Z88.1 Allergy status to other antibiotic agents; Z79.899 Other long term (current) drug therapy
CPT/HCPCS: 36415; 73560; 80053; 85025; 93971; 99284-25

== ENCOUNTER 2024-05-27 17:37 | Emergency (ER) | payer BC, OTHER ==
[~2024-05-27] VITALS: Ht 177.8 cm; Wt 102.5 kg
[2024-05-27] MEDS ORDERED: VITAMIN B121000 MCG PO (17:46)
[2024-05-27] MEDS ORDERED: ASPIRIN325 MG PO (17:46)
[2024-05-27] MEDS ORDERED: NITROGLYCERIN 0.4 MG SUBL SL PRN (18:00)
[2024-05-27 18:08] LABS: BASOPHILS 0.6 % (0-2); EOSINOPHILS 7.3 % (0-6); HEMATOCRIT 37.2 % (35.0-50.0); HEMOGLOBIN 12.7 g/dL (12.0-18.0); LYMPHOCYTES 26.5 % (24-44); MCH 27.2 (27-36); MCV 79.9 fl (81-99); MONOCYTES 7.4 % (0-12); NEUTROPHILS 58.2 % (39-80); PLATELET COUNT 174 K/uL (140-440); RBC 4.66 M/ul (4.3-5.7)
[2024-05-27 18:23] LABS: ALBUMIN 2.6 g/dL (3.4-5.0); ALBUMIN/GLOBULIN RATIO 0.63 (1.1-2.4); ANION GAP 10.9 (7-21); BILIRUBIN, TOTAL 0.5 ng/dL (0.2-1.0); BUN/CREATININE RATIO 15.78 (6.0-28.6); CALCIUM 8.5 mg/dL (8.5-10.1); CREATININE, SERUM 1.33 mg/dL (0.70-1.30); POTASSIUM 3.9 mmol/L (3.5-5.1); PROTEIN, TOTAL 6.7 g/dL (6.4-8.2)
[2024-05-27 19:05] VITALS: BP 179/97
--- NOTE | 2024-05-29 21:14 | EKG ---
[facility] [address] [facility] [place] [address] Signed Sinus rhythm with 1st degree AV block with occasional premature ventricular complexes Otherwise normal ECG When compared with ECG of 25-OCT-2022 12:08, premature ventricular complexes are now present Confirmed by Tc Ruelas DO ([id number]) on 05/29/2024 9:14:00 PM Electronically Signed By: TC RUELAS DO 05/29/[id number] PATIENT NAME: KATYDIANA ANTONINO Electrocardiogram DATE OF : 56 PHYSICIAN: TC RUELAS DO REPORT #: [id number] REPORT IS CONFIDENTIAL AND NOT TO BE RELEASED WITHOUT AUTHORIZATION
== END 2024-05-27 19:05 | disposition home or self-care (01) ==
LOC: ED 17:37
PROVIDERS: Emergency Medicine
DX: R07.89 Other chest pain (principal); I10 Essential (primary) hypertension; E11.9 Type 2 diabetes mellitus without complications; Z86.73 Personal history of transient ischemic attack (TIA), and cerebral infarction without residual deficits; Z88.0 Allergy status to penicillin; Z88.1 Allergy status to other antibiotic agents; Z79.82 Long term (current) use of aspirin; Z79.899 Other long term (current) drug therapy
CPT/HCPCS: 36415; 71045; 80053; 83735; 84484; 85025; 93005; 93010; 99285-25